=== PATIENT | female | born 2000 | race African-American/Black ===

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

== ENCOUNTER 2021-09-19 16:31 | Emergency (ER) | payer OTHER ==
[~2021-09-19] VITALS: Ht 160 cm; Wt 60.8 kg
[2021-09-19] MEDS ORDERED: NAPROXEN250 MG PO (19:12)
== END 2021-09-19 20:38 | disposition home or self-care (01) ==
LOC: ED 16:31
DX: M25.562 Pain in left knee (principal)

== ENCOUNTER 2021-10-15 23:21 | Emergency (ER) | payer OTHER ==
[~2021-10-15] VITALS: Ht 160 cm; Wt 62.6 kg
[~2021-10-15 23:21] MED LIST changes: +NAPROXEN250 MG PO
[2021-10-15 23:53] LABS: BASO # 0.1 10*3/uL (0.0-0.1); BASO % 0.8 % (0.0-1.0); EOS # 0.2 10*3/uL (0.0-0.4); EOS % 1.4 % (1.0-4.0); HEMATOCRIT 36.6 % (37.0-47.0); LYMPH # 2.7 10*3/uL (1.3-4.4); LYMPH % 18.7 % (27.0-41.0); MEAN CELL VOLUME 84.3 fl (81.0-99.0); MEAN CORPUSCULAR HGB 27.2 pg (27.0-31.0); MEAN CORPUSCULAR HGB CONC 32.2 g/dl (33.0-37.0); MEAN PLATELET VOLUME 8.7 fl (9.6-12.3); MONO % 6.6 % (3.0-9.0); NEUT # 10.5 10*3/uL (2.3-7.9); NEUT % 72.2 % (47.0-73.0); PLATELET COUNT AUTOMATED 403 10*3/uL (130-400); RED BLOOD COUNT 4.34 10*6/uL (4.10-5.10); RED CELL DISTRI WIDTH 13.4 % (0-14.5); WHITE BLOOD COUNT 14.6 10*3/uL (4.8-10.8)
[2021-10-15 23:53] LABS: BILIRUBIN Negative (Negative); BLOOD Negative (Negative); CLARITY Clear (Clear); COLOR Yellow (Yellow); GLUCOSE Negative (Negative); KETONE Negative (Negative); LEUKO ESTERASE 3+ (Negative); NITRITE Negative (Negative); PH 6.5 (4.5-8.0); UROBILINOGEN 0.2 E.U./dl (0.0-1.0)
[2021-10-16] LABS: EPITHELIAL CELLS 16-20; WBC 21-30 wbc/hpf (0-5)
[2021-10-16 00:01] LABS: BACTERIA TRACE; RBC 0-2 rbc/hpf (0-2)
[2021-10-16 00:09] LABS: ALBUMIN 3.6 gm/dl (3.1-4.5); ALKALINE PHOSPHATASE 88 U/L (45-117); BUN 10 mg/dl (7-24); CHLORIDE 107 mmol/L (98-107); CREATININE 0.69 mg/dL (0.55-1.02); LIPASE 128 U/L (73-393); POTASSIUM 3.7 mmol/L (3.5-5.1); SGOT/AST 16 IU/L (3-35); SGPT/ALT 24 U/L (12-78); SODIUM 139 mmol/L (136-145); TOTAL PROTEIN 7.4 gm/dL (6.4-8.2)
[2021-10-16 00:11] LABS: B-hCG (QUALITATIVE) NEGATIVE (NEGATIVE)
[2021-10-16] MEDS ORDERED: CEFDINIR300 MG PO (01:26)
[2021-10-16] MEDS ORDERED: Meclizine25 MG PO (01:26)
== END 2021-10-16 01:47 | disposition home or self-care (01) ==
LOC: ED 23:21
PROVIDERS: Internal Medicine
DX: R42 Dizziness and giddiness (principal); R10.84 Generalized abdominal pain; F41.9 Anxiety disorder, unspecified; F32.9 Major depressive disorder, single episode, unspecified; Z79.899 Other long term (current) drug therapy

== ENCOUNTER 2023-04-15 11:35 | Emergency (ER) | payer OTHER ==
[~2023-04-15] VITALS: Ht 160 cm; Wt 63.5 kg
[~2023-04-15 11:35] MED LIST changes: +CEFDINIR300 MG PO; +Meclizine25 MG PO
== END 2023-04-15 12:20 | disposition home or self-care (01) ==
LOC: ED 11:35
DX: N64.4 Mastodynia (principal); N63.0 Unspecified lump in unspecified breast

== ENCOUNTER 2023-05-24 15:07 | Emergency (ER) | payer OTHER ==
[~2023-05-24] VITALS: Wt 63.5 kg
== END 2023-05-24 18:12 | disposition home or self-care (01) ==
LOC: ED 15:07
DX: S91.202A Unspecified open wound of left great toe with damage to nail, initial encounter (principal); X58.XXXA Exposure to other specified factors, initial encounter; Y93.89 Activity, other specified; Y92.89 Other specified places as the place of occurrence of the external cause; Y99.8 Other external cause status

== ENCOUNTER 2023-05-26 19:53 | Emergency (ER) | payer OTHER ==
[~2023-05-26] VITALS: Ht 160 cm; Wt 63.5 kg
[2023-05-26] MEDS ORDERED: VIBRAMYCIN100 MG PO (20:49)
== END 2023-05-26 20:51 | disposition home or self-care (01) ==
LOC: ED 19:53
DX: N90.89 Other specified noninflammatory disorders of vulva and perineum (principal)

== ENCOUNTER 2023-05-30 19:46 | Emergency (ER) | payer OTHER ==
[~2023-05-30] VITALS: Wt 74.8 kg
[2023-05-30] MEDS ORDERED: Bactroban Oint22 GM T (21:06)
== END 2023-05-30 21:08 | disposition home or self-care (01) ==
LOC: ED 19:46
DX: L91.8 Other hypertrophic disorders of the skin (principal); Z79.2 Long term (current) use of antibiotics

== ENCOUNTER 2023-06-10 08:26 | Emergency (ER) | payer OTHER ==
[~2023-06-10] VITALS: Ht 160 cm; Wt 63.5 kg
[~2023-06-10 08:26] MED LIST changes: +Bactroban Oint22 GM T
== END 2023-06-10 10:28 | disposition home or self-care (01) ==
LOC: ED 08:26
DX: U07.1 COVID-19 (principal)